=== PATIENT | male | born 1945 | race Caucasian/White ===

== ENCOUNTER 2016-10-23 04:49 | Inpatient (IN) | payer OTHER, MEDICARE ==
[2016-10-23] MEDS ORDERED: NITROGLYCERIN 0.4 MG BTL SL PRN ×3 (04:57→15:49)
[2016-10-23] MEDS ORDERED: NS 1,000 ML IV ONE ×2 (04:57→14:11)
[2016-10-23] MEDS ORDERED: ASPIRIN 81 MG CHEWABLE TAB PO ONE (04:57)
--- NOTE | 2016-10-23 04:59 | CPEKG ---
Heart Rate: 69 RR Interval: 870 P-R Interval: 176 QRSD Interval: 80 QT Interval: 376 QTC Interval: 403 P [place]: 41 QRS [place]: 4 T Wave [place]: 11 EKG Severity - NORMAL ECG - EKG Impression: SINUS RHYTHM Electronically Signed By: Jose Johnson 26-Oct-2016 04:14:35
--- NOTE | 2016-10-23 05:03 | EDPHY ---
H & P HPI/ROS: HPI CHIEF COMPLAINT: Chest pain, left arm Tingling HISTORY OF PRESENT ILLNESS: This patient very pleasant 71-year-old male denies any significant medical history and remote surgical history of his left knee, presents to the emergency room at 5 o'clock in the morning after he woke up at 4 o'clock in the morning or 60 minutes ago with pressure in his chest and then shortly after approximately 10 minutes develop some tingling in his left arm. Patient tells me now that tingling has resolved however he still has some pressure in the middle of his chest. However that has improved. He tells me around 4:00 a.m. he woke up noticed that he had severe pressure in his chest nonradiating he did have some sweaty feet he tells me but no other nausea or vomiting denies arm pain and jaw pain or back pain. Tells me the pain was a pressure sensation in the middle of his chest and then his left arm became tingly. Currently upon arrival to the emergency room he does complain of 3/10 pressure in the center of his chest nonradiating without any tingling numbness or weakness. patient denies ever having a cardiac evaluation denies having a stress test, denies history of stroke or [place] Past Medical History: allergies, hearing impaired, takes a baby aspirin per day Past Surgical History:Left knee surgery Social History: occasional alcohol use, denies daily use of tobacco or drugs, no tobacco history Family History: coronary disease in his mom, bypass surgery, no other known coronary artery disease in family ROS REVIEW OF SYSTEMS: A comprehensive 10 point review of systems is otherwise negative aside from elements mentioned in the history of present illness. Exam Constitutional triage nursing summary reviewed, vital signs reviewed, awake/ alert. Eyes normal conjunctivae and sclera, EOMI, PERRLA. HENT normal inspection, atraumatic, moist mucus membranes, no epistaxis, neck supple/ no meningismus, no raccoon eyes. Respiratory clear to auscultation bilaterally, normal breath sounds, no respiratory distress, no wheezing. Cardiovascular rate normal, regular rhythm, no murmur, no edema, distal pulses normal. Gastrointestinal soft, non-tender, no rebound, no guarding, normal bowel sounds, no distension, no pulsatile mass. Genitourinary no CVA tenderness. Musculoskeletal no midline vertebral tenderness, full range of motion, no calf swelling, no tenderness of extremities, no meningismus, good pulses, neurovascularly intact. Skin pink, warm, & dry, no rash, skin atraumatic. Neurologic awake, alert and oriented x 3, AAOx3, moves all 4 extremities equally, motor intact, sensory intact, CN II-XII intact, normal cerebellar, normal vision, normal speech. Psychiatric normal mood/affect. Heme/Lymph/Immune no lymphadenopathy. Differential diagnosis includes but is not limited to: ACS, atypical chest pain , pneumothorax, pneumonia, pulmonary embolism, aortic dissection, congestive heart failure, tumor, musculoskeletal pain, esophageal pain, GERD, peptic ulcer disease, pancreatitis Medical Decision Making: This patient had an IV established be placed on full front desk monitor, obtain blood work, cardiac marker, EKG, chest x-ray he will be given a dose of nitroglycerin to see if this improves his chest pressure. He will be given a full-dose aspirin. His risk factors for coronary artery disease include his age and family history Re-evaluation: EKG interpretation by me on record in [employer] system. Impression time of EKG 4:57 a.m., this is sinus rhythm rate of 69, there is no acute ischemic changes specifically no ST elevation, ST depression, T-wave abnormality. No prolonged intervals. Unremarkable EKG. No signs of acute ischemia visualized. 0514: This patient was given full-dose aspirin and 1 nitroglycerin tab here in the emergency room this reduced his pain to a 0/10. He is pain-free and his blood pressure improved from the 170 systolic to 140s. This time is resting comfortably no complaints. ED x-ray chest one view: Negative for acute cardiopulmonary disease. Image interpreted by myself. Source: Patient - Medical/Surgical History Hx Asthma: No Hx Chronic Respiratory Disease: No Hx Diabetes: No Hx Cardiac Disease: No Hx Renal Disease: No Hx Cirrhosis: No Hx Alcoholism: No Hx HIV/AIDS: No Hx Splenectomy or Spleen Trauma: No Other PMH: PSH: L knee;. PMH: kidney stones; - Social History Smoking Status: Never smoked Constitutional: Initial Vital Signs Temperature (C) 36.5 C 10/23/16 04:55 Heart Rate 80 10/23/16 04:55 Respiratory Rate 16 10/23/16 04:55 Blood Pressure 171/102 H 10/23/16 04:55 O2 Sat (%) 94 10/23/16 04:55 O2 Delivery Mode Nasal Cannula O2 (L/minute) 1 Allergies/Adverse Reactions: No Known Allergies Allergy (Verified 10/23/16 08:15) Home Medications: Medication Instructions Recorded Sertraline HCl [Zoloft 50mg (*)] 50 mg PO DAILY 01/17/16 Aspirin [Aspirin 81mg (*)] 81 mg PO DAILY 03/24/16 Cetirizine [ZyrTEC 10 mg (*)] 10 mg PO DAILY 10/23/16 Zolpidem Tartrate [Ambien] 10 mg PO HS PRN 10/23/16 Medical Decision Making - Data Points Laboratory Results: Laboratory Results 10/23/16 05:05 10/23/16 05:05 Medications Given: Discontinued Medications Aspirin (Aspirin) 324 mg PO EDNOW ONE Stop: 10/23/16 04:58 Last Admin: 10/23/16 05:07 Dose: 324 mg Aspirin (Aspirin) 81 mg PO DAILY OMAR Stop: 04/21/17 10:29 Last Admin: 10/23/16 11:09 Dose: Not Given Aspirin Buffered (Aspirin Ec) 325 mg PO ONCALL ONE Stop: 10/23/16 14:12 Last Admin: 10/23/16 15:18 Dose: Not Given Diazepam (Valium) 5 mg PO ONCALL ONE Stop: 10/23/16 14:12 Last Admin: 10/23/16 15:19 Dose: Not Given Diphenhydramine HCl (Benadryl) 25 mg PO ONCALL ONE Stop: 10/23/16 14:12 Last Admin: 10/23/16 15:19 Dose: Not Given Famotidine (Pepcid) 20 mg PO ONCALL ONE Stop: 10/23/16 14:12 Last Admin: 10/23/16 15:19 Dose: Not Given Sodium Chloride (Ns) 1,000 mls @ 0 mls/hr IV ONCE ONE PRN Reason: As Directed Stop: 10/23/16 04:58 Last Admin: 10/23/16 05:09 Dose: 1,000 mls Sodium Chloride (Ns) 1,000 mls @ 0 mls/hr IV ONCALL ONE PRN Reason: TKO Stop: 10/23/16 14:12 Last Admin: 10/23/16 15:19 Dose: Not Given Departure - Departure Disposition: [facility] Clinical Impression: Chest pain Qualifiers: Chest pain type: unspecified Qualifier Code: (R07.9) Chest pain, unspecified Hypertension Qualifiers: Hypertension type: essential hypertension Qualifier Code: (I10) Essential ( primary) hypertension Condition: Fair
[2016-10-23 05:11] LABS: % IMMATURE GRANULYOCYTES 0.3 % (0.0-1.1); ABSOLUTE IMMATURE GRANULOCYTES 0.02 10^3/uL (0.00-0.10); ADD DIFF? NO; ADD MORPH? NO; ADD SCAN? NO; ATYPICAL LYMPHOCYTE FLAG 0 (0-99); FRAGMENT RBC FLAG 0 (0-99); HEMATOCRIT 40.4 % (40.0-51.0); HEMOGLOBIN 14.4 g/dL (13.7-17.5); LEFT SHIFT FLG 0 (0-99); LIPEMIA HEMOLYSIS FLAG 90 (0-99); MEAN CELL HEMOGLOBIN 33.8 pg (27.9-34.1); MEAN CELL HEMOGLOBIN CONCENTR. 35.6 g/dL (32.4-36.7); MEAN CELL VOLUME 94.8 fL (81.5-99.8); MEAN PLATELET VOLUME 9.6 fL (8.7-11.7); PLATELET CLUMPS FLAG 0 (0-99); PLATELET COUNT 250 10^3/uL (150-400); RED BLOOD CELL COUNT 4.26 10^6/uL (4.40-6.38); RED CELL DISTRIBUTION WIDTH 11.9 % (11.5-15.2)
[2016-10-23 05:23] LABS: INR 0.97 (0.83-1.16); PROTIME(PATIENT) 12.8 SEC (12.0-15.0)
[2016-10-23 05:24] LABS: APTT 25.1 SEC (23.0-38.0)
[2016-10-23 05:36] LABS: ALANINE AMINOTRANSFERASE 40 IU/L (21-72); ALBUMIN 4.1 g/dL (3.5-5.0); ALKALINE PHOSPHATASE 82 IU/L (38-126); ANION GAP 11 mEq/L (8-16); ASPARTATE AMINOTRANSFERASE 27 IU/L (17-59); BILIRUBIN,TOTAL 0.8 mg/dL (0.1-1.4); BILIRUBIN-CONJUGATED 0.4 mg/dL (0.0-0.5); BILIRUBIN-UNCONJUGATED 0.4 mg/dL (0.0-1.1); CALCIUM 9.2 mg/dL (8.5-10.4); CARBON DIOXIDE 27 mEq/l (22-31); CHLORIDE 103 mEq/L (97-110); CREATININE 1.1 mg/dL (0.7-1.3); GLOMERULAR FILTRATION RATE > 60; GLUCOSE 92 mg/dL (70-100); MAGNESIUM 1.9 mg/dL (1.6-2.3); SODIUM 141 mEq/L (134-144); TOTAL PROTEIN 6.9 g/dL (6.3-8.2)
[2016-10-23] MEDS ORDERED: IOPAMIDOL (ISOVUE 370) 100 ML BTL IV ONE ×2 (05:43→14:43)
[2016-10-23 05:47] LABS: CREATINE KINASE-MB FRACTION 2.24 ng/mL (0-3.19); TROPONIN I 0.013 ng/mL (0-0.034)
[2016-10-23] MEDS ORDERED: ONDANSETRON 4 MG/2 ML VIAL IVP PRN ×2 (06:11→15:49)
--- NOTE | 2016-10-23 07:36 | GHP ---
[f rep st] HISTORY AND PHYSICAL DATE OF ADMISSION: 10/23/2016 CHIEF COMPLAINT: Chest pain. HISTORY OF PRESENT ILLNESS: Patient is a 71-year-old male with past medical history of depression, p resenting with sudden onset of chest tightness this morning. He is unsure if he was awake or if it a woke him but he had substernal chest tightness with associated left arm numbness and tingling. His f ingers felt cold. He denies any associated shortness of breath, nausea or vomiting. His feet felt s weaty. Also complained of mild headache. This tightness lasted approximately an hour and was reliev ed with nitroglycerin in the emergency room. He recently had cold symptoms. He was shoveling a lot of snow today and, per his , he was much more short of breath than normal. He states with activity such as walking he does not normally get chest pain or shortness of breath. REVIEW OF SYSTEMS: I completed a 10-point review of systems, negative except as noted in HPI. PAST MEDICAL HISTORY: Depression. PAST SURGICAL HISTORY: Left knee surgery. SOCIAL HISTORY: Lives in [place] with his . 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 No increased stressors. No tobacco. Drinks a glass of wine with dinner nightly. No illicits. FAMILY HISTORY: Mother with several MIs, pacemaker and 4-vessel CABG. Father passed of prostate can cer. MEDICATIONS: Sertraline, Zyrtec, baby aspirin daily. ALLERGIES: Dust, dogs, pollen. PHYSICAL EXAMINATION: VITAL SIGNS: Temperature is 36.5, blood pressure 171/102, heart rate 80, resp irations 16, 94% on 2 L. Repeat blood pressure 142/83 after nitroglycerin. GENERAL: Patient is wel l appearing, lying in bed, in no acute distress. HEENT: PERRLA, EOMI. Moist mucous membranes. CV: Regular rate and rhythm. No murmurs, gallops, or rubs. No JVD. No lower extremity edema. LUNGS: Clear to auscultation bilaterally. ABDOMEN: Soft, nontender, nondistended. Positive bowel sounds . : No Urr[place]ia, no suprapubic tenderness. MUSCULOSKELETAL: 5/5 upper and lower extremity strength . NEURO: 2 through 12 is intact. No focal deficits. PSYCH: Alert and oriented x3. LABS: WBC 7.6, hemoglobin 14, hematocrit 40, platelets 250. D-dimer 0.73. INR 0.7, PT 12.8. Sodiu m 141, potassium 4, chloride 107, bicarbonate 27, BUN 25, creatinine 1.1 (baseline creatinine), gluco se 127. LFTs within normal. Troponin 0.013. BNP is 53. Chest x-ray, personally reviewed by me: Normal expansion. No evidence of effusion or opacity. EKG: ST flattening in lead III and aVF. No old to compare. CTA of chest is pending. ASSESSMENT AND PLAN: 1. Chest pain: The differential includes acute coronary syndrome versus pulmonary embolism versus i nfection versus musculoskeletal versus gastroesophageal reflux disease. Initial troponin and EKG wer e negative for ischemia. D-dimer was mildly elevated. CTA was ordered in the emergency room which i s pending. Patient does have a personal risk factor of age and concerning symptoms including tightne ss with associated left arm numbness and tingling that was relieved with nitroglycerin. He does have a family history of heart disease. Will monitor in the E[facility] on telemetry. Repeat troponin and EKG. I think it is reasonable to check an exercise treadmill test and patient is agreeable to this plan. Provide p.r.n. nitroglycerin, morphine, and oxygen. 2. Depression: Continue sertraline. 3. Seasonal allergies: Continue Zyrtec. 4. Diet: Regular. 5. DVT prophylaxis, low risk, ambulatory. 6. Disposition: Patient warrants observation admission given acute chest pain concerning for acute coronary syndrome, requiring serial troponins, EKG. /[id number]/MODL
--- NOTE | 2016-10-23 07:54 | CT ---
CT Chest Pulmonary Angiogram With Contrast Enhancement and Multiplanar Reconstructions 0602 hours History: Chest pain, elevated D-dimer. Technique: 1.25 mm axial multidetector helical CT imaging was performed through the chest while 90 mL Isovue-370 were injected intravenously without complication. The images were then transferred to an independent workstation where multiplanar and three-dimensional reconstructions were performed by th e interpreting physician and reviewed at multiple windows. Dose reduction techniques were utilized. CT Pulmonary Angiogram Findings: No CT evidence of definite pulmonary thromboemboli. No aortic aneury sm or dissection. Heart is normal in size. Coronary artery calcifications noted. CT Chest Findings: A few 3 mm calcified granulomata in both lungs without evidence of suspicious pulm onary nodules. No acute pneumonia, pleural effusion, or pneumothorax. No significant mediastinal, hil ar, or axillary adenopathy. Diffuse mild thickening of the esophagus with a small hiatal hernia suspe cted. Impression: 1. No definite pulmonary thromboemboli. 2. No aortic aneurysm or dissection. 3. Coronary artery calcifications. 4. A few calcified granulomata without pneumonia or pleural effusion. 5. Small hiatal hernia and possible esophagitis. Consider upper endoscopy correlation. Findings and recommendations discussed with Dr. Ila Ramirez at 0730 hours.
--- NOTE | 2016-10-23 08:04 | DX ---
Chest, One View Portable 0520 hours History: Chest pain. Comparison: None. Findings: Cardiac silhouette is normal in size. No pneumonia, congestive heart failure, pleural effu enedina, or pneumothorax. Impression: 1. No acute pulmonary disease. 2. Consider chest two views when the patient's medical condition permits.
[2016-10-23] MEDS ORDERED: NON-FORMULARY NEW DRUG (Zolpidem Tartrate [Ambien] 10 MG) PO PRN (10:08)
[2016-10-23] MEDS ORDERED: ZOLPIDEM TARTRATE 5 MG TAB PO PRN (10:11)
[2016-10-23] MEDS ORDERED: ASPIRIN 81 MG CHEWABLE TAB PO SCH (10:30)
[2016-10-23] MEDS: CETIRIZINE 10 MG TAB PO SCH (11:10)
[2016-10-23] MEDS: SERTRALINE HCL 50 MG TAB PO SCH (11:10)
[2016-10-23] MEDS: PANTOPRAZOLE SODIUM 40 MG TAB PO SCH (11:12)
--- NOTE | 2016-10-23 12:32 | PDCARST ---
CAR Stress Test Results Type of Stress Test: Dhruv protocol stress testing Indication: chest discomfort Description of Procedure: Consent obtained. Resting ECG was assessed. Patient without significant murmur on auscultation. Patient able to walk comfortably on treadmill without issues. Blood pressure, heart rate, pulse ox, and telemetry were monitored over course of procedure. Impression: Abnormal ECG pattern was noted at 4 minutes, and continued into recovery at 5 minutes, 20 seconds. No chest pains were noted. DTS was -5. At 2 minutes into recovery, resolution of the ECG changes was being noted. Conclusion: Abnormal ETT with ischaemic changes noted. ECG changes were appreciated without symptoms. Patient needs angiogram
--- NOTE | 2016-10-23 12:42 | PDCARCONS ---
Cardiology Consult Reason for Consult: Chest discomfort Chief Complaint: chest discomfort Requesting Physician: Hospitalists History of Present Illness: Patient is a 71 y/o male with fairly unremarkable past history - no HTN, HLP, CAD, or DM - who presented to [facility] with complaints of chest discomfort. Discomfort awakened the patient from sleep about 4 am this morning. Initially, the patient thought it was '...something I ate...', but symptoms continued to be noted, and there was radiation of discomfort into the left arm. Questionable diaphoresis, but no nausea or emesis, no PND or orthopnea. Given the symptoms noted, he proceeded to the [facility]. Labs without overt abnormalities noted (cardiac biomarkers were normal), and ECG was grossly normal. History Information - Allergies/Home Medication List Allergies/Adverse Reactions: No Known Allergies Allergy (Verified 10/23/16 08:15) Home Medications: Sertraline HCl [Zoloft 50mg (*)] 50 mg PO DAILY 01/17/16 [Last Taken 10/22/16] Aspirin [Aspirin 81mg (*)] 81 mg PO DAILY 03/24/16 [Last Taken 10/23/16 04:00 81MG] Cetirizine [ZyrTEC 10 mg (*)] 10 mg PO DAILY 10/23/16 [Last Taken 10/22/16] Zolpidem Tartrate [Ambien] 10 mg PO HS PRN 10/23/16 [Last Taken Unknown] I have personally reviewed and updated: family history, medical history, social history, surgical history - Past Medical History no pertinent PMH - Surgical History Additional surgical history: knee surgery NOS - Family History Positive for: cancer, CAD - Social History Smoking Status: Never smoked Alcohol Use: Occasionally Drug Use: None Cardiac History - Cardiac History Cardiac Risk Factors: age > 65, male Timing/Duration: Hours Severity: moderate Severity Scale: 7 Location: substernal, central Activities at Onset: sleep Modifying Factors: improves with: breathing Associated Symptoms: chest pain, diaphoresis, other (Left arm discomfort) TANGELA Risk Evaluation age greater or equal to 65: yes greater or equal to 3 CAD risk factors: no known CAD(stenosis greater or eqaul to 50%): no ASA use in past 7 days: yes severe angina(greater or equal to 2 episodes in 24hrs): no EKG ST changes greater or equal to 0.5mm: yes positive cardiac marker: no Total Score: 4 TANGELA Score: 19.9% risk Physical Exam Temp Pulse Resp BP Pulse Ox 36.5 C 60 16 129/83 H 96 10/23/16 04:55 10/23/16 07:22 10/23/16 07:22 10/23/16 07:22 10/23/16 07:22 O2 (L/minute) 1 Constitutional: no apparent distress, appears nourished, not in pain Eyes: PERRL Ears, Nose, Mouth, Throat: moist mucous membranes Cardiovascular: regular rate and rhythym, no murmur, rub, or gallop, No JVD Peripheral Pulses: 2+: dorsalis-pedis (R), dorsalis-pedis (L) Respiratory: no respiratory distress, no rales or rhonchi, clear to auscultation Gastrointestinal: normoactive bowel sounds, soft, non-tender abdomen Skin: warm, normal color Musculoskeletal: full muscle strength, no muscle tenderness, normal joint ROM Neurologic: AAOx3, sensation intact bilaterally, CN II-XII Intact Psychiatric: interacting appropriately, not anxious Lab and Imaging 10/23/16 05:05 10/23/16 05:05 WBC 7.62 10^3/uL (3.80-9.50) 10/23/16 05:05 RBC 4.26 10^6/uL (4.40-6.38) L 10/23/16 05:05 Hgb 14.4 g/dL (13.7-17.5) 10/23/16 05:05 Hct 40.4 % (40.0-51.0) 10/23/16 05:05 MCV 94.8 fL (81.5-99.8) 10/23/16 05:05 MCH 33.8 pg (27.9-34.1) 10/23/16 05:05 MCHC 35.6 g/dL (32.4-36.7) 10/23/16 05:05 RDW 11.9 % (11.5-15.2) 10/23/16 05:05 Plt Count 250 10^3/uL (150-400) 10/23/16 05:05 MPV 9.6 fL (8.7-11.7) 10/23/16 05:05 Neut % (Auto) 47.1 % (39.3-74.2) 10/23/16 05:05 Lymph % (Auto) 36.5 % (15.0-45.0) 10/23/16 05:05 Kay % (Auto) 11.8 % (4.5-13.0) 10/23/16 05:05 Eos % (Auto) 3.5 % (0.6-7.6) 10/23/16 05:05 Baso % (Auto) 0.8 % (0.3-1.7) 10/23/16 05:05 Nucleat RBC Rel Count 0.0 % (0.0-0.2) 10/23/16 05:05 Absolute Neuts (auto) 3.59 10^3/uL (1.70-6.50) 10/23/16 05:05 Absolute Lymphs (auto) 2.78 10^3/uL (1.00-3.00) 10/23/16 05:05 Absolute Monos (auto) 0.90 10^3/uL (0.30-0.80) H 10/23/16 05:05 Absolute Eos (auto) 0.27 10^3/uL (0.03-0.40) 10/23/16 05:05 Absolute Basos (auto) 0.06 10^3/uL (0.02-0.10) 10/23/16 05:05 Absolute Nucleated RBC 0.00 10^3/uL (0-0.01) 10/23/16 05:05 Immature Gran % 0.3 % (0.0-1.1) 10/23/16 05:05 Immature Gran # 0.02 10^3/uL (0.00-0.10) 10/23/16 05:05 PT 12.8 SEC (12.0-15.0) 10/23/16 05:05 INR 0.97 (0.83-1.16) 10/23/16 05:05 APTT 25.1 SEC (23.0-38.0) 10/23/16 05:05 D-Dimer 0.73 ug/mLFEU (0.00-0.50) H 10/23/16 05:05 Sodium 141 mEq/L (134-144) 10/23/16 05:05 Potassium 4.0 mEq/L (3.5-5.2) 10/23/16 05:05 Chloride 103 mEq/L (97-110) 10/23/16 05:05 Carbon Dioxide 27 mEq/l (22-31) 10/23/16 05:05 Anion Gap 11 mEq/L (8-16) 10/23/16 05:05 BUN 25 mg/dL (7-23) H 10/23/16 05:05 Creatinine 1.1 mg/dL (0.7-1.3) 10/23/16 05:05 Estimated GFR > 60 10/23/16 05:05 Glucose 92 mg/dL (70-100) 10/23/16 05:05 Calcium 9.2 mg/dL (8.5-10.4) 10/23/16 05:05 Magnesium 1.9 mg/dL (1.6-2.3) 10/23/16 05:05 Total Bilirubin 0.8 mg/dL (0.1-1.4) 10/23/16 05:05 Conjugated Bilirubin 0.4 mg/dL (0.0-0.5) 10/23/16 05:05 Unconjugated Bilirubin 0.4 mg/dL (0.0-1.1) 10/23/16 05:05 AST 27 IU/L (17-59) 10/23/16 05:05 ALT 40 IU/L (21-72) 10/23/16 05:05 Alkaline Phosphatase 82 IU/L (38-126) 10/23/16 05:05 Creatine Kinase 171 IU/L (0-224) 10/23/16 05:05 CK-MB (CK-2) Fraction 2.24 ng/mL (0-3.19) 10/23/16 05:05 Troponin I < 0.012 ng/mL (0-0.034) 10/23/16 10:40 NT-Pro-B Natriuret Pep 53 pg/mL (0-125) 10/23/16 05:05 Total Protein 6.9 g/dL (6.3-8.2) 10/23/16 05:05 Albumin 4.1 g/dL (3.5-5.0) 10/23/16 05:05 Lipase 139.0 IU/L (23-300) 01/06/17 05:05 Visualized and Interpreted Chest x-ray results: Yes Chest X-ray Interpretation: no infiltrate Visualized and Interpreted EKG results: Yes EKG Interpretation: Positive for: normal sinsus rhythm A/P Assessment: 71 y/o male with unremarkable past cardiovascular history with chest discomfort and radiation into the left arm. No cardiac biomarker elevation noted. Resting , baseline ECG with normal sinus rhythm and no ST/T wave changes noted. ETT was arranged, and at 5 minutes into the study, ST depression of 2 mm and greater was noted - without symptoms (V5/6/7). Plan: Recommendations for patient to have angiogram given the symptoms and ECG changes noted. Further recommendations after invasive testing has been completed. Patient was in agreement with these plans.
[2016-10-23] MEDS ORDERED: FAMOTIDINE 20 MG TAB PO ONE (14:11)
[2016-10-23] MEDS ORDERED: ASPIRIN EC 325 MG TAB PO ONE (14:11)
[2016-10-23] MEDS ORDERED: DIAZEPAM 5 MG TAB PO ONE (14:11)
[2016-10-23] MEDS ORDERED: diphenhydrAMINE 25 MG CAP PO ONE (14:11)
[2016-10-23] MEDS ORDERED: LIDOCAINE 1% 30 ML SDV ONE (14:42)
[2016-10-23] MEDS ORDERED: fentaNYL 100 MCG/2 ML INJ ONE ×2 (14:42→15:21)
[2016-10-23] MEDS ORDERED: MIDAZOLAM 2 MG/2 ML VIAL ONE ×2 (14:42→15:21)
--- NOTE | 2016-10-23 15:47 | HOSPPROG ---
Hospitalist Progress Note Assessment/Plan: 71 yo M with PMH of MDD pw cp # chest pain/ ACS: waking him at night, initial w/u with ecg and CTA reassuring however stress test showing concerning ecg changes with ST depressions. Plan is for cardiac angiography per cardiology. Continue monitoring on tele. # esophagitis/hiatal hernia: noted on CTA and thought to be possibly the etiology for his cp, however given positive stress test this seems less likely. Started on PPI, likely should have f/u with GI to eval further but can be deferred to op setting. # MDD: continue op meds # h/o nephrolithiasis, h/o lumbar degenerative disc disease # dispo: IP status, will need > 48 hours stay for eval/mgmt of above Patient new to my care. Old records reviewed and summarized as above. Reviewed care plan with cardiology. Subjective: no significant overnight events, patient not having any further chest pain Objective: Vital Signs Temp Pulse Resp BP Pulse Ox 36.5 C 60 16 129/83 H 96 10/23/16 04:55 10/23/16 07:22 10/23/16 07:22 10/23/16 07:22 10/23/16 07:22 PT 12.8 SEC (12.0-15.0) 10/23/16 05:05 INR 0.97 (0.83-1.16) 10/23/16 05:05 awake alert nad anicteric op clear rrr no mrg cta b soft nt nd no cce warm dry well perfused oriented appropriate - Time Spent With Patient Time Spent with Patient: greater than 35 minutes Time Spent with Patient: Greater than 35 minutes spent on this patients care, greater than 50% of time spent counseling, educating, and coordinating care regarding the above mentioned plan. ICD10 Worksheet Patient Problems: Problems Problem Status Diagnosed Chest pain Acute Hypertension Acute
[2016-10-23] MEDS ORDERED: OXYCODONE/APAP 5/325 TAB PO PRN (15:49)
[2016-10-23] MEDS ORDERED: ATROPINE SULFATE 1 MG/10 ML SYR IVP PRN (15:49)
[2016-10-23] MEDS: ASPIRIN 81 MG CHEWABLE TAB PO SCH (17:10)
--- NOTE | 2016-10-23 17:18 | CPIP ---
[f rep st] INVASIVE CARDIAC PROCEDURE PROCEDURE: Left heart catheterization, left ventriculogram, right and left coronary arteriogram. INDICATIONS: The patient has had resting angina and had a very positive high risk stress test. It w as a regular stress test. He had deep ST-segment depression with exercise without chest pain. He gave informed consent for coronary angiogram. We went over the options including further noninvas krupa testing. We recommended the angiogram and he proceeded to have this study done. COMPLICATIONS: None. Condition at the end of the study was excellent. FINDINGS: 1. Left main coronary artery is normal. The left anterior descending artery in the mid section has a complex lesion involving the takeoff of large diagonal branch and the diagonal branch, itself, has high-degree stenosis in the mid section. The LAD has 85% stenosis. Further down in the beginning of the distal segment of the LAD is another 85% stenosis. The 2nd septal airport planner is a large vessel with a high degree proximal stenosis in the range of 80%. The circumflex coronary artery has intimal disease and OM1 has a 75-80% stenosis. There is a subtotal circumflex right after the takeoff of th at obtuse marginal branch with a 99% stenosis and collaterals from right to the left. 2. The right coronary artery in the mid section has intimal disease. The PDA has a 75% stenosis and is a large vessel. 3. The right coronary artery is dominant. 4. The right sends collaterals to the circumflex. LEFT VENTRICULOGRAM: 1. Left ventriculogram normal. 2. Left ventricular chamber dimension. 3. Normal left ventricular systolic function. 4. No regional wall motion abnormalities. 5. No significant mitral regurgitation is noted. LEFT HEART CATHETERIZATION: 1. Left ventricular end-diastolic pressure is 13 mmHg. 2. There is no aortic stenosis. RECOMMENDATION: 1. The patient should proceed to coronary bypass grafting. 2. We will start him on medications for an acute coronary syndrome. 3. I am not going to start heparin right at this time, but we can easily start that immediately if h e develops any more symptoms. He will at this time get aspirin, beta norah, statin therapy. All his and his 's questions have been answered. Thank you very much. I have talked to the Cardiovascular Surgery service about him and they will do a consultation. /[id number]/MODL
[2016-10-23] MEDS: BISOPROLOL FUMARATE 5 MG TAB PO SCH (18:42)
[2016-10-23] MEDS: ATORVASTATIN CALCIUM 40 MG TAB PO SCH (20:33)
[2016-10-24 03:34] LABS: % IMMATURE GRANULYOCYTES 0.1 % (0.0-1.1); ABSOLUTE IMMATURE GRANULOCYTES 0.01 10^3/uL (0.00-0.10); ADD DIFF? NO; ADD MORPH? NO; ADD SCAN? NO; ATYPICAL LYMPHOCYTE FLAG 0 (0-99); FRAGMENT RBC FLAG 0 (0-99); HEMOGLOBIN 12.5 g/dL (13.7-17.5); LEFT SHIFT FLG 0 (0-99); LIPEMIA HEMOLYSIS FLAG 90 (0-99); MEAN CELL HEMOGLOBIN 33.8 pg (27.9-34.1); MEAN CELL HEMOGLOBIN CONCENTR. 34.7 g/dL (32.4-36.7); MEAN CELL VOLUME 97.3 fL (81.5-99.8); MEAN PLATELET VOLUME 9.6 fL (8.7-11.7); PLATELET CLUMPS FLAG 0 (0-99); PLATELET COUNT 210 10^3/uL (150-400); RED CELL DISTRIBUTION WIDTH 11.9 % (11.5-15.2)
[2016-10-24 03:50] LABS: ANION GAP 8 mEq/L (8-16); CALCIUM 8.8 mg/dL (8.5-10.4); CARBON DIOXIDE 27 mEq/l (22-31); CHLORIDE 104 mEq/L (97-110); GLOMERULAR FILTRATION RATE > 60; GLUCOSE 92 mg/dL (70-100); POTASSIUM 4.5 mEq/L (3.5-5.2); SODIUM 139 mEq/L (134-144)
--- NOTE | 2016-10-24 08:45 | US ---
Bilateral Duplex/Doppler Carotid Sonography October 24, 2016 Indication: 71-year-old man scheduled for open heart surgery. Preanesthesia evaluation. Technique: The cervical portions of the carotid and vertebral arteries were imaged and interrogated by color and pulsed Duplex/Doppler. Spectral analysis was performed. Findings Right Carotid: Right ICA peak systolic velocity = 67 cm/sec Right CCA peak systolic velocity = 71 cm/sec Right ECA peak systolic velocity = 81 cm/sec Right ICA/CCA systolic velocity ratio = 0.95 Minimal noncalcified plaque along the posterior wall of the origin of the right internal carotid eliezer ry results in less than 10% narrowing. No flow-limiting stenosis or ulcerated plaque. Left Carotid: Left ICA peak systolic velocity = 78 cm/sec Left CCA peak systolic velocity = 80 cm/sec Left ECA peak systolic velocity = 75 cm/sec Left ICA/CCA systolic velocity ratio = 0.98 Widely patent carotid bulb and origin of the internal carotid artery. No flow-limiting stenosis or ul cerated plaque. Vertebral Arteries: Antegrade flow is shown by pulsed Doppler of each vertebral artery. Minimally enlarged lymph nodes are present along the right and left jugulodigastric chain. Representa tive right-sided lymph node measures 0.5 cm in short axis x 1.2 x 1.7 cm. A medic[employer] sales representative node on th e left just superior to the carotid bulb measures 0.9 cm in short axis x 1.1 x 1.9 cm. Impression: 1. Widely patent bilateral carotid and vertebral arteries. No flow-limiting stenosis. 2. Minimal symmetric bilateral lymphadenopathy along the jugulodigastric chains. Recommend clinical f ollow up. Measurement of carotid stenosis is based on velocity parameters that correlate the residual internal carotid diameter with [place] Symptomatic Carotid Endarterectomy Trial (NASCET) based stenosis levels.
[2016-10-24] MEDS: CETIRIZINE 10 MG TAB PO SCH (08:52)
[2016-10-24] MEDS: ASPIRIN 81 MG CHEWABLE TAB PO SCH (08:52)
[2016-10-24] MEDS: BISOPROLOL FUMARATE 5 MG TAB PO SCH (08:53)
[2016-10-24] MEDS: PANTOPRAZOLE SODIUM 40 MG TAB PO SCH (08:54)
[2016-10-24] MEDS: SERTRALINE HCL 50 MG TAB PO SCH (08:54)
--- NOTE | 2016-10-24 11:11 | PDCARPN ---
Cardiology Progress Note Assessment/Plan: 71-year-old male with no prior cardiac history. Presented with new onset chest discomfort. Ruled out for ACS. Had a markedly abnormal exercise treadmill test. Subsequent cardiac catheterization demonstrated normal LV systolic function and multivessel CAD. Now referred for CABG. Dr. Buchanan here to see the patient. Has been started on an appropriate regimen including aspirin, beta norah, and statin therapy. No recurrent symptoms over night. 10/24/16 11:10 Subjective: Denies chest pain and dyspnea. Objective: Vital Signs (8 Hrs) Temp Pulse Resp BP Pulse Ox 10/24/16 07:52 36.3 C 72 13 143/83 H 93 10/24/16 04:00 36.4 C 58 L 14 141/75 H 94 Intake/Output (24 Hrs) 10/23/16 10/24/16 10/25/16 05:59 05:59 05:59 Intake Total 1400 Balance 1400 Intake: Oral (ml) 400 IV Intake (ml) 1000 Other: Weight 77.111 kg Number of Voids Toilet 3 Number of Stools Toilet 0 Result Diagrams: 10/24/16 03:18 10/24/16 03:18 - Physical Exam Constitutional: WDWN, healthy appearing Eyes: anicteric sclera Ears, Nose, Mouth, Throat: moist mucous membranes Cardiovascular: regular rate and rhythm, no murmurs, no gallops Respiratory: clear to auscultate bilat Gastrointestinal: normoactive bowel sounds, no tenderness, no masses Skin: no rashes, no edema Neurologic: AAOx3 Psychiatric: interactive, not anxious ICD10 Worksheet Patient Problems: Problems Problem Status Diagnosed Chest pain Acute Hypertension Acute
[2016-10-24] MEDS: MUPIROCIN 2% 22 GM OINT NS SCH ×2 (12:00→20:26)
--- NOTE | 2016-10-24 13:15 | HOSPPROG ---
Hospitalist Progress Note Assessment/Plan: 71 yo M with PMH of MDD pw cp # chest pain: without prior cardiac history, positive stress test and MV disease on cath as next # cad: severe multivessel disease, plan for cabg on Wednesday, pre cabg w/u underway # esophagitis/hiatal hernia: noted on CTA, will defer to op w/u, started on PPI # MDD: continue op meds # h/o nephrolithiasis, h/o lumbar degenerative disc disease # dispo: IP status, will need > 48 hours stay for eval/mgmt of above Subjective: no signficant overnight events, patient feeling well, he is eager for surgery Objective: Vital Signs Temp Pulse Resp BP Pulse Ox 36.4 C 59 L 16 128/78 H 93 10/24/16 11:59 10/24/16 11:59 10/24/16 11:59 10/24/16 11:59 10/24/16 11:59 Laboratory Results 10/24/16 03:18 10/24/16 03:18 10/23/16 10/24/16 10/25/16 05:59 05:59 05:59 Intake Total 1400 Balance 1400 PT 12.8 SEC (12.0-15.0) 10/23/16 05:05 INR 0.97 (0.83-1.16) 10/23/16 05:05 awake alert nad anicteric op clear rrr no mrg cta b soft nt nd no cce warm dry well perfused oriented appropriate ICD10 Worksheet Patient Problems: Problems Problem Status Diagnosed Chest pain Acute Hypertension Acute
[2016-10-24] MEDS: ATORVASTATIN CALCIUM 40 MG TAB PO SCH (20:27)
[2016-10-25] MEDS: BISOPROLOL FUMARATE 5 MG TAB PO SCH (09:06)
[2016-10-25] MEDS: PANTOPRAZOLE SODIUM 40 MG TAB PO SCH (09:06)
[2016-10-25] MEDS: ASPIRIN 81 MG CHEWABLE TAB PO SCH (09:06)
[2016-10-25] MEDS: SERTRALINE HCL 50 MG TAB PO SCH (09:06)
[2016-10-25] MEDS: MUPIROCIN 2% 22 GM OINT NS SCH ×2 (09:07→21:28)
[2016-10-25] MEDS: CETIRIZINE 10 MG TAB PO SCH (09:12)
--- NOTE | 2016-10-25 10:37 | PDCARPN ---
Cardiology Progress Note Assessment/Plan: 71-year-old male with no prior cardiac history. Presented with new onset chest discomfort. Ruled out for ACS. Had a markedly abnormal exercise treadmill test. Subsequent cardiac catheterization demonstrated normal LV systolic function and multivessel CAD. Has been started on an appropriate regimen including aspirin, beta norah, and statin therapy. No recurrent angina. CABG scheduled for tomorrow. Aggressive secondary prevention. Goal LDL < 70. 10/25/16 10:34 Subjective: Denies chest pain and dyspnea. Objective: Vital Signs (8 Hrs) Temp Pulse Resp BP Pulse Ox 10/25/16 08:05 36.4 C 62 17 124/70 H 94 10/25/16 04:00 36.4 C 53 L 15 117/72 94 Intake/Output (24 Hrs) 10/24/16 10/25/16 10/26/16 05:59 05:59 05:59 Intake Total 1400 2720 Balance 1400 2720 Intake: Oral (ml) 400 2720 IV Intake (ml) 1000 Other: Weight 77.111 kg Number of Voids Toilet 3 2 Number of Stools Toilet 0 1 Result Diagrams: 10/24/16 03:18 10/24/16 03:18 - Physical Exam Constitutional: WDWN, healthy appearing, no apparent distress Eyes: anicteric sclera Ears, Nose, Mouth, Throat: moist mucous membranes Cardiovascular: regular rate and rhythm, no murmurs Respiratory: clear to auscultate bilat Gastrointestinal: normoactive bowel sounds, no tenderness, no masses Skin: no rashes, no edema Neurologic: AAOx3 Psychiatric: interactive, not anxious ICD10 Worksheet Patient Problems: Problems Problem Status Diagnosed Chest pain Acute Hypertension Acute
--- NOTE | 2016-10-25 10:44 | HOSPPROG ---
Hospitalist Progress Note Assessment/Plan: # cad: severe multivessel disease, plan for cabg on Wednesday, pre cabg w/u underway # esophagitis/hiatal hernia: noted on CTA, will defer to op w/u, started on PPI # MDD: continue op meds # h/o nephrolithiasis, h/o lumbar degenerative disc disease # dispo: IP status, will need > 48 hours stay for eval/mgmt of above # will sign off to cardiovascular surgery service after surgery Subjective: no new complaints Objective: Vital Signs Temp Pulse Resp BP Pulse Ox 36.4 C 62 17 124/70 H 94 10/25/16 08:05 10/25/16 08:05 10/25/16 08:05 10/25/16 08:05 10/25/16 08:05 Laboratory Results 10/24/16 03:18 10/24/16 03:18 10/24/16 10/25/16 10/26/16 05:59 05:59 05:59 Intake Total 1400 2720 Balance 1400 2720 PT 12.8 SEC (12.0-15.0) 10/23/16 05:05 INR 0.97 (0.83-1.16) 10/23/16 05:05 - Physical Exam Constitutional: no apparent distress, appears nourished, not in pain Respiratory: no respiratory distress Neurologic: AAOx3 Psychiatric: interacting appropriately, not anxious, not encephalopathic, thought process linear ICD10 Worksheet Patient Problems: Problems Problem Status Diagnosed Chest pain Acute Hypertension Acute
--- NOTE | 2016-10-25 14:47 | GCON ---
[f rep st] CONSULTATION DATE OF CONSULTATION: 10/25/2016 REFERRING PHYSICIAN: Benjamin Gates MD REASON FOR CONSULTATION: Patient seen at the request of Dr. Gates with the patient's permission. IMPRESSION: 1. Unstable angina pectoris with severe 3-vessel disease and normal left ventricular function. 2. Status post left knee surgery. RECOMMENDATIONS: This gentleman should undergo multivessel coronary artery revascularization [facility] nela with arterial conduits. We will take both mammaries and will evaluate his left radial artery for 1-2 conduits as indicated. Risk is 1% for serious morbidity and mortality. Risk of AFib is approxi mately 35-40%. This was explained in detail to the patient. We will also resect his left atrial tanja endage or place an Atra clip at the time surgery. The patient and were appreciative of time spe nt and questions answered to their satisfaction. They have no other concerns and he is scheduled for Wednesday morning at 7:15. CHIEF COMPLAINT: This gentleman was awakened at 4 o'clock in the morning with chest and arm discomfo rt. He presented to the ER. He denied nausea or vomiting. He had a persistent 3/10 pain at the marcus e of presentation to the ER. He has no prior history of cardiac events. He has a history of taking a baby aspirin daily, remote alcohol abuse which is daily only. He has never smoked, and he uses no illicit drugs. He works part-time with police training and travels for surgery. FAMILY HISTORY: Positive for known bypass surgery in his mother, otherwise no significant contributi ng history. REVIEW OF SYSTEMS: All 10 systems were interrogated at the present time, he is entirely asymptomatic , including chief complaint. PHYSICAL EXAMINATION: GENERAL: This is a very fit gentleman, appears younger than stated age. JOSE ELIAS L SIGNS: Blood pressure is 99/60 at the present time, heart rate 78, respirations 14 and unlabored. HEENT: Normocephalic. PERRLA, EOMI. NECK: Without bruit, adenopathy, or thyromegaly. HEART: Ra te is regular without murmur. LUNGS: Clear. ABDOMEN: Soft, nontender. Pedal pulses are 2+. No p eripheral edema. No varicosities. LABS: Hematocrit was 40 on admission. Creatinine 1.0 most recently. Carotid study is completed and shows no significant atherosclerotic disease. /[id number]/MODL
[2016-10-25] MEDS: ATORVASTATIN CALCIUM 40 MG TAB PO SCH (20:06)
[2016-10-25] MEDS ORDERED: CHLORHEXIDINE GLUC HIBICLENS 118 ML BTL TP SCH (21:00)
[2016-10-26] MEDS ORDERED: MANNITOL 25% 12.5 GM/50 ML VIAL IV ONE (06:00)
[2016-10-26] MEDS ORDERED: PHENYLEPHRINE HCL 50 MG in NS 250 ML IV ONE (06:00)
[2016-10-26] MEDS ORDERED: niCARdipine/NACL 200 ML IV SCH (06:00)
[2016-10-26] MEDS ORDERED: INSULIN REGULAR HUMAN 100 UNIT in NS 100 ML IV ONE (06:00)
[2016-10-26] MEDS ORDERED: VERAPAMIL 5 MG, NITROGLYCERIN 2.5 MG, HEPARIN 500 UNIT, SODIUM BICARBONATE 0.2 MEQ in L... MISC ONE (06:00)
[2016-10-26] MEDS ORDERED: ceFAZolin 2 GM/DEXTROSE 100 ML IV ONE (06:00)
[2016-10-26] MEDS ORDERED: AMINOCAPROIC ACID 5 GM/20 ML VIAL IV ONE (06:00)
[2016-10-26] MEDS ORDERED: NOREPINEPHRINE BITARTRATE 16 MG in NS 250 ML IV ONE (06:00)
[2016-10-26] MEDS ORDERED: CITRATE DEXTROSE SOLN 500 ML BAG MISC ONE (06:00)
[2016-10-26] MEDS ORDERED: SODIUM BICARBONATE 20 MEQ, LIDOCAINE 1% 10 ML in NORMOSOL-R 1,000 ML MISC ONE (06:00)
[2016-10-26] MEDS ORDERED: NS 1,000 ML IV ONE (06:00)
[2016-10-26] MEDS ORDERED: CALCIUM CHLORIDE 1 GM/10 ML INJ ONE (06:38)
[2016-10-26] MEDS ORDERED: MILRINONE/DEXTROSE/100 ML BAG IV ONE (06:38)
[2016-10-26] MEDS ORDERED: ALBUMIN 5% 250 ML BOTTLE IV ONE (06:38)
[2016-10-26] MEDS ORDERED: PROTAMINE SULFATE 50 MG/5 ML VIAL IVP ONE (06:38)
[2016-10-26] MEDS ORDERED: MAGNESIUM SULFATE 1 GM/2 ML VIAL ONE (06:39)
[2016-10-26] MEDS ORDERED: niCARdipine/NACL/200 ML BAG IV ONE (06:39)
[2016-10-26] MEDS ORDERED: POTASSIUM Cl (KCl) 20 MEQ/50 ML BAG IV ONE (06:39)
[2016-10-26] MEDS ORDERED: ADENOSINE 6 MG/2 ML VIAL ONE (06:39)
[2016-10-26] MEDS ORDERED: AMINOCAPROIC ACID 5 GM/20 ML VIAL ONE (06:39)
[2016-10-26] MEDS ORDERED: NA BICARBONATE 50 MEQ/50 ML VIAL ONE ×2 (06:39→14:36)
[2016-10-26] MEDS ORDERED: AMIODARONE HCL 150 MG/3 ML VIAL ONE (06:39)
[2016-10-26] MEDS ORDERED: DOPamine/DEXTROSE/250 ML BAG IV ONE (06:39)
[2016-10-26] MEDS ORDERED: LIDOCAINE 2% 100 MG/5 ML SYR IVP ONE (06:39)
[2016-10-26] MEDS ORDERED: HEPARIN 10,000 UNIT/10 ML MDV ONE (06:40)
[2016-10-26] MEDS ORDERED: ceFAZolin 1 GM VIAL ONE (06:40)
[2016-10-26] MEDS ORDERED: methylPREDNISolone SOD SUCC 1 GM/8 ML VIAL ONE (06:40)
[2016-10-26] MEDS ORDERED: VERAPAMIL 5 MG/2 ML VIAL ONE (06:50)
[2016-10-26] MEDS ORDERED: PAPAVERINE HCL 60 MG/2 ML SDV ONE (06:50)
[2016-10-26] MEDS ORDERED: SKIN ADHESIVE (DERMABOND) 1 EACH TP ONE ×2 (06:50→09:00)
[2016-10-26] MEDS ORDERED: MINERAL OIL 10 ML VIAL TP ONE (06:50)
[2016-10-26] MEDS ORDERED: fentaNYL 250 MCG/5 ML INJ ONE ×2 (06:58)
[2016-10-26] MEDS ORDERED: MIDAZOLAM 2 MG/2 ML VIAL ONE (07:01)
[2016-10-26] MEDS ORDERED: PROPOFOL/EMULSION 500 MG/50 ML BOTTLE IV ONE (07:01)
[2016-10-26] MEDS ORDERED: NITROGLYCERIN 50 MG/10 ML SDV IV ONE ×2 (07:03)
[2016-10-26] MEDS ORDERED: VANCOMYCIN HCL/NORMAL SALINE 250 ML IV ONE (08:00)
[2016-10-26] MEDS ORDERED: fentaNYL 50 MCG PATCH TD SCH (09:00)
[2016-10-26] MEDS ORDERED: ALBUMIN 5% 500 ML BOTTLE IV ONE (10:12)
[2016-10-26] MEDS ORDERED: MAGNESIUM SULF 2 GM/WATER 50 ML BAG IV ONE (10:12)
[2016-10-26 10:34] LABS: HEMOGLOBIN A1C 5.6 % (4.0-6.0)
[2016-10-26] MEDS ORDERED: PROPOFOL 200 MG/20 ML VIAL ONE (11:28)
[2016-10-26] MEDS ORDERED: fentaNYL 100 MCG/2 ML INJ ONE ×2 (11:28→12:04)
[2016-10-26] MEDS ORDERED: ACETAMINOPHEN 650 MG SUPP PR PRN (11:53)
[2016-10-26] MEDS ORDERED: BISACODYL 10 MG SUPP PR PRN (11:53)
[2016-10-26] MEDS ORDERED: METOCLOPRAMIDE 10 MG/2 ML VIAL IVP PRN (11:53)
[2016-10-26] MEDS ORDERED: SODIUM CL NASAL 45 ML BTL EACHNARE PRN (11:53)
[2016-10-26] MEDS ORDERED: ONDANSETRON 4 MG/2 ML VIAL IVP PRN (11:53)
[2016-10-26] MEDS ORDERED: ACETAMINOPHEN 325 MG TAB PO PRN (11:53)
[2016-10-26] MEDS ORDERED: fentaNYL 100 MCG/2 ML INJ IVP PRN (11:53)
[2016-10-26] MEDS ORDERED: D50W 25 GM/50 ML SYR IVP PRN (11:53)
[2016-10-26] MEDS ORDERED: MAGNESIUM HYDROXIDE 30 ML UDCUP PO PRN (11:53)
[2016-10-26] MEDS ORDERED: PANTOPRAZOLE SODIUM 40 MG in NS 100 ML IV ONE (11:53)
[2016-10-26] MEDS ORDERED: POLYETHYLENE GLYCOL 3350 17 GM PKT PO PRN (11:53)
[2016-10-26] MEDS ORDERED: MAGNESIUM SULF 2 GM/WATER 50 ML IV ONE (11:53)
[2016-10-26] MEDS ORDERED: ALBUMIN 5% 250 ML IV PRN (11:53)
[2016-10-26] MEDS ORDERED: ONDANSETRON DISINTEGRATING 4 MG TAB PO PRN (11:53)
[2016-10-26] MEDS ORDERED: MEPERIDINE 25 MG/ML SYR IVP PRN (11:53)
[2016-10-26] MEDS ORDERED: LACTULOSE 20 GM/30 ML UDCUP PO PRN (11:53)
[2016-10-26] MEDS ORDERED: CEPACOL LOZENGE PO PRN (11:53)
[2016-10-26] MEDS ORDERED: POTASSIUM Cl (KCl) 50 ML IV PRN (11:53)
--- NOTE | 2016-10-26 11:53 | POSTOPPROG ---
Post Op Note Date of Operation: 10/26/16 Surgeon: Johann Buchanan Unmanned Equipment Operator: Kalie Anesthesiologist: Silva Anesthesia: GET(General Endotracheal) Pre-op Diagnosis: unstable angina Procedure: CAB 5 Howell-LAD, Mary-Dg via TS, SVG-Pda, OM1 seq OM2, Atriclip Inf/Abcess present in the surg proc area at time of surgery?: No EBL: 50-100 Drains: Other (3 blakes)
[2016-10-26] MEDS ORDERED: INSULIN REGULAR HUMAN 100 UNIT in NS 100 ML IV SCH (12:00)
[2016-10-26] MEDS ORDERED: NS 1,000 ML IV SCH (12:00)
--- NOTE | 2016-10-26 12:34 | GOP ---
[f rep st] OPERATIVE REPORT DATE OF OPERATION: 10/26/2016 SURGEON: Johann Buchanan DO OVERNIGHT ASSOCIATE: Vega Jade ANESTHESIOLOGIST: Dani Gill PREOPERATIVE DIAGNOSIS: Unstable angina pectoris with severe 3-vessel disease. POSTOPERATIVE DIAGNOSIS: Unstable angina pectoris with severe 3-vessel disease. PROCEDURE PERFORMED: 1. Coronary artery bypass grafting x5 with left internal mammary artery to the distal left anterior descending, right internal mammary artery via the transverse sinus to the first diagonal, saphenous v ein graft to the first obtuse marginal and sequential second obtuse marginal, and saphenous vein rehan t to the mid posterior descending artery. 2. Atra clip to the left atrial appendage. FINDINGS: Patient presented with unstable angina pectoris. He was noted to have severe 3-vessel dis ease with normal LV function preoperatively. He was consented for surgery. DESCRIPTION OF PROCEDURE: He was brought to the operating room, intubated, monitoring lines. He was prepped and draped in sterile classical manner. Sternotomy was performed. However, initially we evaluated him for radial artery harvesting however, he had inadequate collateral flow to his hand and for that reason, that was not harvested. We then performed a sternotomy and harvesting both mammaries, which were 2.5 mm excellent quality ves sels. Vein was harvested endoscopically from the left leg by JOSÉ LUIS Leigh who first assisted thro ughout the procedure. He was then heparinized, cannulated in the standard fashion. Cardiopulmonary bypass was begun. A ca rdioplegic arrest was obtained with antegrade cardioplegia, topical hypothermia, and systemic cooling . Transesophageal echo had been performed by Anesthesia; please see separate findings. No significan t valvular dysfunction with good LV function was noted pre and post pump. I initially grafted the posterolateral circumflex, which was a 1.9 to 2 mm vessel with moderately dif fuse disease sequentially to the first OM graft, which was quite thin-walled and initially it was tho ught to be a vein however, it was just a small, thin-walled vessel. It had excellent antegrade flow and was therefore grafted in a sequential manner, then brought off the ascending aorta with a 5-0 Pro nathaniel. We then performed a vein graft in the mid PDA where it measured 1.6 mm. It was brought off the ascen ding aorta and had excellent antegrade flow. I then placed a 35 mm Atra clip across the base of the left atrial appendage without difficulty. We then proceeded with bringing the right internal mammary artery to a lateral pericardial incision b eneath the aorta in a transverse sinus and grafting it to the proximal diagonal branch, which was a 2 mm, good quality vessel. It was tacked to the epicardium while rewarming was begun. We then grafte d the mammary to the distal LAD without complication. It was tacked to the epicardium. The crossclamp was removed with suction on the ascending aortic vent. Spontaneous cardiac activity w as noted to resume. Patient was rewarmed and weaned from bypass without difficulty. EKG looked stab le with sinus bradycardia, as did the transesophageal echo with no segmental abnormalities noted. The heparin was reversed with protamine. The cannula was removed and oversewn. Two ventricular paci ng wires were placed. Thymic fat and pericardium were closed. The chest was closed in standard fash ion, and the patient was returned to ICU in stable condition. /[id number]/MODL
--- NOTE | 2016-10-26 12:54 | CPEKG ---
Heart Rate: 76 RR Interval: 789 P-R Interval: 192 QRSD Interval: 78 QT Interval: 412 QTC Interval: 464 P [place]: 71 QRS [place]: 7 T Wave [place]: 33 EKG Severity - NORMAL ECG - EKG Impression: SINUS RHYTHM Electronically Signed By: Abel Shook 26-Oct-2016 15:47:48
[2016-10-26] MEDS: MUPIROCIN 2% 22 GM OINT NS SCH ×2 (13:03→21:31)
[2016-10-26] MEDS: BISOPROLOL FUMARATE 5 MG TAB PO SCH (13:46)
[2016-10-26] MEDS: CETIRIZINE 10 MG TAB PO SCH (13:46)
[2016-10-26] MEDS: PANTOPRAZOLE SODIUM 40 MG TAB PO SCH (13:46)
[2016-10-26] MEDS: ASPIRIN 81 MG CHEWABLE TAB PO SCH (13:46)
[2016-10-26] MEDS: SERTRALINE HCL 50 MG TAB PO SCH (13:47)
[2016-10-26 14:08] LABS: BICARBONATE 19 mEq/L (22-26); MEASURED OXYGEN SATURATION 92 % (92-95); PCO2 43 mmHg (34-38); PO2 79 mmHg (65-75); TCO2 21 mEq/L (23-27)
[2016-10-26 14:09] LABS: O2 CONCENTRATIION 40 % (0-100); P/F RATIO 198 RATIO; PRESSURE SUPPORT 7; SIMV YES
--- NOTE | 2016-10-26 14:48 | DX ---
Portable AP Semiupright Chest - October 26, 2016, at 12:49 p.m. Clinical History: 71-year-old male postoperative open heart surgery, currently in the ICU. Comparison Study: Chest, dated October 23, 2016. Findings: The patient has undergone open heart surgery with median sternotomy wires, mediastinal my gical clips (consistent with CABG), and a left atrial appendage ligature. Telemetry monitoring lead l loren are present. There are epicardial pacing wires. There is an endotracheal tube, which terminates 5.4 cm above the reva. There is a right IJ central venous catheter terminating in the distal SVC. T here is a left-sided chest tube. There are mild hypoventilatory features. The cardiac silhouette latoya ins mildly enlarged, and the pulmonary vasculature is redistributed. There is some bibasilar subsegme ntal atelectasis. There is no pneumothorax. Impression: Postoperative changes with interventional device positioning, as-detailed.
[2016-10-26] MEDS ORDERED: NA BICARBONATE 50 MEQ/50 ML VIAL IV ONE ×2 (15:00→16:30)
[2016-10-26 15:57] LABS: BASE EXCESS -5.2 mEq/L (-2.5-2.5); BICARBONATE 20 mEq/L (22-26); MEASURED OXYGEN SATURATION 95 % (92-95); PCO2 41 mmHg (34-38); PO2 90 mmHg (65-75); TCO2 22 mEq/L (23-27)
[2016-10-26 15:58] LABS: CPAP YES; O2 CONCENTRATIION 40 % (0-100); P/F RATIO 225 RATIO; PATIENT RATE 20; PRESSURE SUPPORT 7
[2016-10-26] MEDS: ceFAZolin 2 GM/DEXTROSE 100 ML IV SCH ×2 (16:19→21:28)
[2016-10-26] MEDS: HYDROCODONE/APAP 5/325 TAB PO PRN (19:26)
[2016-10-26] MEDS ORDERED: CHLORHEXIDINE GLUCONATE 15 ML UDL PO SCH (21:00)
[2016-10-26] MEDS ORDERED: FAMOTIDINE 20 MG/NACL 50 ML IV SCH (21:00)
[2016-10-26] MEDS: SENNOSIDES/DOCUSATE SODIUM TAB PO SCH (21:15)
[2016-10-26 22:37] LABS: HEMOGLOBIN 11.3 g/dL (13.7-17.5); MEAN CELL HEMOGLOBIN 34.7 pg (27.9-34.1); MEAN CELL HEMOGLOBIN CONCENTR. 35.3 g/dL (32.4-36.7); MEAN CELL VOLUME 98.2 fL (81.5-99.8); RED BLOOD CELL COUNT 3.26 10^6/uL (4.40-6.38); RED CELL DISTRIBUTION WIDTH 12.1 % (11.5-15.2)
[2016-10-27] MEDS: HYDROCODONE/APAP 5/325 TAB PO PRN ×3 (00:09→20:01)
[2016-10-27 04:17] LABS: % IMMATURE GRANULYOCYTES 0.3 % (0.0-1.1); ABSOLUTE IMMATURE GRANULOCYTES 0.05 10^3/uL (0.00-0.10); ADD DIFF? NO; ADD MORPH? NO; ADD SCAN? NO; ATYPICAL LYMPHOCYTE FLAG 0 (0-99); FRAGMENT RBC FLAG 0 (0-99); HEMATOCRIT 31.2 % (40.0-51.0); HEMOGLOBIN 10.6 g/dL (13.7-17.5); LEFT SHIFT FLG 60 (0-99); LIPEMIA HEMOLYSIS FLAG 90 (0-99); MEAN PLATELET VOLUME 10.3 fL (8.7-11.7); PLATELET CLUMPS FLAG 0 (0-99); PLATELET COUNT 178 10^3/uL (150-400); RED BLOOD CELL COUNT 3.12 10^6/uL (4.40-6.38); RED CELL DISTRIBUTION WIDTH 12.3 % (11.5-15.2)
[2016-10-27 04:26] LABS: ANION GAP 8 mEq/L (8-16); CALCIUM 7.7 mg/dL (8.5-10.4); CARBON DIOXIDE 25 mEq/l (22-31); CHLORIDE 111 mEq/L (97-110); CREATININE 0.9 mg/dL (0.7-1.3); GLOMERULAR FILTRATION RATE > 60; GLUCOSE 107 mg/dL (70-100); POTASSIUM 4.7 mEq/L (3.5-5.2); SODIUM 144 mEq/L (134-144)
[2016-10-27] MEDS: HEPARIN 5,000 UNIT/0.5 ML SYR SC SCH ×3 (05:10→22:33)
[2016-10-27] MEDS: ceFAZolin 2 GM/DEXTROSE 100 ML IV SCH ×3 (05:14→22:30)
[2016-10-27] MEDS ORDERED: HEPARIN 5,000 UNIT/0.5 ML SYR SC SCH (06:00)
--- NOTE | 2016-10-27 07:28 | SOAPPROG ---
[id number] AtriClip ligation left atrial appendage Sx CAD w preserved LV systolic fx - s/p CABG w bilateral mammaries. Stable early postop course. No vasoactive support. No tachycardia or backup pacing. Modest volume overload. Satisfactory analgesia. Acute expected blood loss anemia - Stable. No transfusions required. Plan: Routine POD#1 orders re lines, drains, orals and mobility. Ok for tx to PCU. 10/27/16 07:23 Subjective: Feels fine. OOB with relative ease. Very comfortable at rest, only hurting during IS. Tolerating clears. Objective: Vital Signs Temp Pulse Resp BP Pulse Ox 37.4 C 96 22 H 104/64 93 10/27/16 04:00 10/27/16 06:00 10/27/16 06:00 10/27/16 06:00 10/27/16 06:00 Laboratory Results 10/27/16 03:55 10/27/16 03:55 10/26/16 10/27/16 10/28/16 05:59 05:59 05:59 Intake Total 1600 1369.5 Output Total 2180 Balance 1600 -810.5 PT 12.8 SEC (12.0-15.0) 10/23/16 05:05 INR 0.97 (0.83-1.16) 10/23/16 05:05 Extubated yest afternoon without incident. Modest suppl O2 req. Urrutia out. No insulin. HR, rhythm and BP stable. CXR -> hypoventilation, tubes in good position, small rt pl effusion vs atelectasis. No sig CTOP. No air leak. Adequate autodiuresis. Labs ok. Physical Exam - Physical Exam General Appearance: alert, no apparent distress Respiratory: lungs clear (upper anterior), other (diminished insp effort. Blakes x 3 y-d to pleurovac, thin serosang drainage, +tidal, no air leak. Rt pl tube stripped of formed clot and fibrinous stranding.) Cardiac/Chest: regular rate, rhythm, tachycardia, other (Sternum grossly stable. Sternotomy and LLE venotomy CDI) Abdomen: normal bowel sounds, non-tender, soft Skin: warm/dry Extremities: swelling (trace) ICD10 Worksheet Patient Problems: Problems Problem Status Diagnosed Chest pain Acute Hypertension Acute
[2016-10-27] MEDS: ASPIRIN 81 MG CHEWABLE TAB PO SCH (08:45)
[2016-10-27] MEDS: SENNOSIDES/DOCUSATE SODIUM TAB PO SCH ×2 (08:45→22:33)
[2016-10-27] MEDS: PANTOPRAZOLE SODIUM 40 MG TAB PO SCH (08:45)
[2016-10-27] MEDS: traMADol 50 MG TAB PO PRN ×2 (08:45→13:17)
[2016-10-27] MEDS: SERTRALINE HCL 50 MG TAB PO SCH (08:46)
[2016-10-27] MEDS: MUPIROCIN 2% 22 GM OINT NS SCH (08:47)
--- NOTE | 2016-10-27 09:52 | DX ---
Portable AP Upright Chest October 27, 2016 6:13 a.m. Clinical History: 71-year-old male in the ICU for follow up after an open heart surgery. Comparison Study: Chest, dated October 26, 2016, at 12:49 p.m. Findings: In the interim, the endotracheal tube has been removed. The numerous interventional and mon itoring devices are stable in this patient who has undergone a CABG and a left atrial appendage ligat ure. There are hypoventilatory features with bibasilar areas of subsegmental atelectasis versus minim al infiltrates. There is some peribronchial thickening. The cardiac silhouette size is stable. There is no pneumothorax appreciated. Impression: Postoperative changes with interval extubation since October 26, 2016 and hypoventilatory features.
[2016-10-27] MEDS: METOPROLOL TARTRATE 25 MG TAB PO SCH (22:31)
[2016-10-28] MEDS: MUPIROCIN 2% 22 GM OINT NS SCH ×2 (01:28→08:34)
[2016-10-28] MEDS: traMADol 50 MG TAB PO PRN ×3 (04:51→16:41)
[2016-10-28] MEDS: HEPARIN 5,000 UNIT/0.5 ML SYR SC SCH ×3 (04:52→21:26)
[2016-10-28 05:22] LABS: % IMMATURE GRANULYOCYTES 0.6 % (0.0-1.1); ABSOLUTE IMMATURE GRANULOCYTES 0.11 10^3/uL (0.00-0.10); ADD DIFF? NO; ADD MORPH? NO; ADD SCAN? NO; ATYPICAL LYMPHOCYTE FLAG 0 (0-99); FRAGMENT RBC FLAG 0 (0-99); HEMATOCRIT 30.4 % (40.0-51.0); HEMOGLOBIN 10.2 g/dL (13.7-17.5); LEFT SHIFT FLG 60 (0-99); LIPEMIA HEMOLYSIS FLAG 80 (0-99); MEAN CELL HEMOGLOBIN 33.9 pg (27.9-34.1); MEAN CELL HEMOGLOBIN CONCENTR. 33.6 g/dL (32.4-36.7); PLATELET CLUMPS FLAG 0 (0-99); PLATELET COUNT 178 10^3/uL (150-400); RED BLOOD CELL COUNT 3.01 10^6/uL (4.40-6.38); RED CELL DISTRIBUTION WIDTH 12.6 % (11.5-15.2)
[2016-10-28 05:36] LABS: ANION GAP 10 mEq/L (8-16); CALCIUM 8.3 mg/dL (8.5-10.4); CARBON DIOXIDE 26 mEq/l (22-31); CHLORIDE 103 mEq/L (97-110); CREATININE 1.5 mg/dL (0.7-1.3); GLOMERULAR FILTRATION RATE 46; GLUCOSE 181 mg/dL (70-100); POTASSIUM 4.7 mEq/L (3.5-5.2); SODIUM 139 mEq/L (134-144)
[2016-10-28] MEDS: SENNOSIDES/DOCUSATE SODIUM TAB PO SCH (08:26)
[2016-10-28] MEDS: PANTOPRAZOLE SODIUM 40 MG TAB PO SCH (08:27)
[2016-10-28] MEDS: SERTRALINE HCL 50 MG TAB PO SCH (08:27)
[2016-10-28] MEDS: ASPIRIN 81 MG CHEWABLE TAB PO SCH (08:27)
[2016-10-28] MEDS: METOPROLOL TARTRATE 25 MG TAB PO SCH ×2 (08:27→21:54)
[2016-10-28] MEDS: CETIRIZINE 10 MG TAB PO SCH (08:28)
[2016-10-28] MEDS ORDERED: SERTRALINE HCL 50 MG TAB PO SCH (09:00)
--- NOTE | 2016-10-28 09:23 | SOAPPROG ---
SOAP Progress Note Assessment/Plan: Assessment: POD#2 CABG x 5 (RYAN-LAD, SHEN-Dx, SV-PDA, SV sequentially OM1-OM2) , prophylactic AtriClip ligation of left atrial appendage Sx CAD w preserved LV systolic fx - s/p CABG w bilateral mammaries. Stable early postop course. No vasoactive support. No tachycardia or backup pacing. Autodiuresing modest volume overload w slight bump in renal fx. Acute expected blood loss anemia - Stable. No transfusions required. Abdominal distention - Threatening ileus. Trial conservative counteractive measures. NGT if progresses. Plan: Remove TCPW and CTs. D/C duragesic patch. Relax fluid restriction to 2L. Switch to CL diet x 24hrs. NS IV @ 100 ml/h x 1L. Scheduled reglan and miralax x 24 hrs. Inc activity and pulm toilet as tolerated. Cont metoprolol 12.5 mg BID w conservative hold parameters. 10/28/16 07:57 Subjective: Doing ok. Feels bloated but is belching, passing gas, and mobilizing a little easier. No nausea. Thirsty. Objective: Vital Signs Temp Pulse Resp BP Pulse Ox 36.7 C 91 18 109/75 91 L 10/28/16 07:40 10/28/16 07:40 10/28/16 07:40 10/28/16 07:40 10/28/16 07:40 Laboratory Results 10/28/16 05:00 10/28/16 05:00 10/27/16 10/28/16 10/29/16 05:59 05:59 05:59 Intake Total 1369.5 1575 480 Output Total 2180 800 Balance -810.5 775 480 PT 12.8 SEC (12.0-15.0) 10/23/16 05:05 INR 0.97 (0.83-1.16) 10/23/16 05:05 Stable rhythm and BP. Sl bump in BUN/Cr, likely delayed response as MAPs > 70 and 2L UOP last 24 hrs. CXR-> Hypoventilation, but improved aeration rt base. Min pl eff. Abundant intestinal gas. CTOP at removal criteria. Physical Exam - Physical Exam General Appearance: alert, no apparent distress Respiratory: decreased breath sounds (bases), other (Blakes x 3 to bulb suction , thin serosang drainage.) Cardiac/Chest: regular rate, rhythm, tachycardia, other (Sternum grossly stable. Sternotomy and LLE venotomy CDI) Abdomen: non-tender, distended, other (hypoactive BS) Skin: warm/dry Extremities: other (trace-1+ dep edema) ICD10 Worksheet Patient Problems: Problems Problem Status Diagnosed Chest pain Acute Hypertension Acute
[2016-10-28] MEDS ORDERED: NS 1,000 ML IV SCH (10:15)
--- NOTE | 2016-10-28 10:49 | DX ---
Portable AP Upright Chest October 28, 2016 6:15 a.m. Clinical History: 71-year-old male presenting for follow up of an effusion and atelectasis. Comparison Study: Chest, dated October 27, 2016, at 6:13 a.m. Findings: The patient has undergone median sternotomy, CABG, and ligature of the left atrial appendag e. There is stable positioning of a left-sided chest tube, and of a right IJ central venous catheter. There are mild hypoventilatory features. The cardiac and mediastinal silhouette remains stable in si ze, and there is peribronchial thickening. There are areas of bibasilar atelectasis and/or mild infil trates. Air-filled loops of stomach and colon are noted with mild elevation of the left hemidiaphragm . There is no evidence of a pneumothorax. Impression: Radiographically similar to October 27, 2016.
[2016-10-28] MEDS: METOCLOPRAMIDE 10 MG/2 ML VIAL IVP SCH ×2 (11:27→18:32)
[2016-10-28] MEDS ORDERED: ACETAMINOPHEN 325 MG TAB PO PRN (18:00)
[2016-10-28] MEDS ORDERED: traMADol 50 MG TAB PO PRN (18:00)
[2016-10-28] MEDS ORDERED: HYDROCODONE/APAP 5/325 TAB PO PRN (18:00)
[2016-10-28] MEDS ORDERED: ATORVASTATIN CALCIUM 40 MG TAB PO SCH (20:00)
[2016-10-29] MEDS: MUPIROCIN 2% 22 GM OINT NS SCH (01:03)
[2016-10-29] MEDS: SENNOSIDES/DOCUSATE SODIUM TAB PO SCH ×3 (01:12→22:04)
[2016-10-29] MEDS: HEPARIN 5,000 UNIT/0.5 ML SYR SC SCH ×3 (04:27→22:04)
[2016-10-29 05:29] LABS: ANION GAP 8 mEq/L (8-16); CALCIUM 8.1 mg/dL (8.5-10.4); CARBON DIOXIDE 27 mEq/l (22-31); CHLORIDE 101 mEq/L (97-110); CREATININE 1.1 mg/dL (0.7-1.3); GLOMERULAR FILTRATION RATE > 60; GLUCOSE 139 mg/dL (70-100); POTASSIUM 4.1 mEq/L (3.5-5.2); SODIUM 136 mEq/L (134-144)
--- NOTE | 2016-10-29 08:53 | SOAPPROG ---
SOAP Progress Note Assessment/Plan: POD#3 CABG x 5 (RYAN-LAD, SHEN-Dx, SV-PDA, SV sequentially OM1-OM2), prophylactic AtriClip ligation of left atrial appendage Unstable angina, severe three-vessel CAD with normal LV function s/p CABG x5. Stable early postop course with preserved normal LV function. Continue ASA/BB/ Statin. Acute expected blood loss anemia - Stable. No transfusions required. ROBIN, likely pre-renal - Cr 1.1 from 1.5 s/p 1 liter NS. Monitor. Post-op ileus, resolving - +flatus with small BMs overnight - will introduce solid foods this AM and monitor. Avoid narcotics. Ambulation. Disposition - plan for home tomorrow Subjective: Denies N/V, abdominal pain. + flatus/small BMs. Objective: Vital Signs Temp Pulse Resp BP Pulse Ox 36.8 C 87 22 H 121/80 H 95 10/29/16 07:39 10/29/16 07:39 10/29/16 07:39 10/29/16 07:39 10/29/16 07:39 Laboratory Results 10/28/16 05:00 10/29/16 04:40 10/28/16 10/29/16 10/30/16 05:59 05:59 05:59 Intake Total 1575 2560 240 Output Total 800 Balance 775 2560 240 PT 12.8 SEC (12.0-15.0) 10/23/16 05:05 INR 0.97 (0.83-1.16) 10/23/16 05:05 - Pending Discharge Pending Discharge Within 24 Hours: Yes Pending Discharge Date: 10/30/16 Pending Discharge Time: 11:00 Physical Exam - Physical Exam General Appearance: WD/WN, alert, no apparent distress EENT: No scleral icterus (R), No scleral icterus (L) Neck: normal inspection Respiratory: chest non-tender, lungs clear, normal breath sounds, No accessory muscle use Cardiac/Chest: regular rate, rhythm, No systolic murmur Abdomen: non-tender, soft, distended, No guarding, No rigid Skin: normal color, warm/dry Extremities: pedal edema (+1 edema B/L) Neuro/Psych: no motor/sensory deficits, alert, normal mood/affect, oriented x 3 , No motor weakness, No sensory deficit ICD10 Worksheet Patient Problems: Problems Problem Status Diagnosed Abnormal stress electrocardiogram test using treadmill Acute 10/23/16 Acute blood loss anemia Acute CAD, multiple vessel Acute Chest pain Acute Hypertension Acute S/P CABG x 5 Acute 10/26/16
[2016-10-29] MEDS: CETIRIZINE 10 MG TAB PO SCH (09:14)
[2016-10-29] MEDS: PANTOPRAZOLE SODIUM 40 MG TAB PO SCH (09:14)
[2016-10-29] MEDS: ASPIRIN 81 MG CHEWABLE TAB PO SCH (09:14)
[2016-10-29] MEDS: METOPROLOL TARTRATE 25 MG TAB PO SCH ×2 (09:15→21:25)
[2016-10-29] MEDS: SERTRALINE HCL 50 MG TAB PO SCH (09:15)
[2016-10-29] MEDS ORDERED: FUROSEMIDE 40 MG/4 ML VIAL IVP ONE (10:21)
[2016-10-29] MEDS ORDERED: POTASSIUM CL 20 MEQ TAB PO ONE (10:21)
--- NOTE | 2016-10-30 07:02 | SOAPPROG ---
SOAP Progress Note Assessment/Plan: POD#4 CABG x 5 (RYAN-LAD, SHEN-Dx, SV-PDA, SV sequentially OM1-OM2), prophylactic AtriClip ligation of left atrial appendage Unstable angina, severe three-vessel CAD with normal LV function s/p CABG x5. Stable early postop course with preserved normal LV function. Continue ASA/BB/ Statin. Acute expected blood loss anemia - Stable. No transfusions required. ROBIN, likely pre-renal - Cr 1.1 from 1.5 s/p 1 liter NS. Monitor. Post-op ileus, resolving - +flatus. Tolerating PO. Avoid narcotics. Ambulation. Magnesium Citrate this AM. Disposition - plan for home later today if +BM Subjective: c/o abdominal distension with discomfort. Denies N/V. + flatus Objective: Vital Signs Temp Pulse Resp BP Pulse Ox 36.6 C 88 18 126/73 H 93 10/30/16 04:00 10/30/16 04:00 10/30/16 04:00 10/30/16 04:00 10/30/16 04:00 Laboratory Results 10/28/16 05:00 10/29/16 04:40 10/29/16 10/30/16 10/31/16 05:59 05:59 05:59 Intake Total 2560 1140 Output Total 1750 Balance 2560 -610 PT 12.8 SEC (12.0-15.0) 10/23/16 05:05 INR 0.97 (0.83-1.16) 10/23/16 05:05 - Pending Discharge Pending Discharge Within 24 Hours: Yes Pending Discharge Date: 10/31/16 Pending Discharge Time: 11:00 Physical Exam - Physical Exam General Appearance: WD/WN, alert, no apparent distress EENT: No scleral icterus (R), No scleral icterus (L) Neck: normal inspection Respiratory: chest non-tender, lungs clear, normal breath sounds, rales, No crackles, No rhonchi, No wheezing Cardiac/Chest: regular rate, rhythm, No systolic murmur Abdomen: normal bowel sounds, non-tender, soft, distended Skin: normal color, warm/dry Extremities: pedal edema (trace b/l) Neuro/Psych: no motor/sensory deficits, alert, normal mood/affect, oriented x 3 ICD10 Worksheet Patient Problems: Problems Problem Status Diagnosed Abnormal stress electrocardiogram test using treadmill Acute 10/23/16 Acute blood loss anemia Acute CAD, multiple vessel Acute Chest pain Acute Hypertension Acute S/P CABG x 5 Acute 10/26/16
[2016-10-30] MEDS ORDERED: MAGNESIUM CITRATE 300 ML BOTTLE PO ONE (07:25)
[2016-10-30] MEDS: HEPARIN 5,000 UNIT/0.5 ML SYR SC SCH ×2 (08:07→14:51)
[2016-10-30] MEDS: ASPIRIN 81 MG CHEWABLE TAB PO SCH (09:10)
[2016-10-30] MEDS: SENNOSIDES/DOCUSATE SODIUM TAB PO SCH (09:10)
[2016-10-30] MEDS: CETIRIZINE 10 MG TAB PO SCH (09:11)
[2016-10-30] MEDS: METOPROLOL TARTRATE 25 MG TAB PO SCH (09:11)
[2016-10-30] MEDS: SERTRALINE HCL 50 MG TAB PO SCH (09:11)
[2016-10-30] MEDS: PANTOPRAZOLE SODIUM 40 MG TAB PO SCH (09:14)
[2016-10-30] MEDS: POLYETHYLENE GLYCOL 3350 17 GM PKT PO SCH (09:14)
[2016-10-30 12:02] VITALS: BP 101/71; PULSE 74; RESP 16; TEMP 97.9; O2SAT 96
--- NOTE | 2016-10-30 12:40 | PDDCSUM ---
Discharge Summary Discharge Summary: ADMISSION DATE: 10/23/16 DISCHARGE DATE: 10/30/16 ADMISSION DX: 1. Unstable angina 2. Severe three vessel disease DISCHARGE DX: 1. Unstable angina 2. Severe three vessel disease 3. Post operative ileus, resolved 4. Acute kidney injury, resolved SECONDARY DX: 1. Hyperlipidemia 2. Depression CONSULTS: 1. Pulmonology : Kevin Smalls PROCEDURES: 10/26/16, Johann Buchanan: 1. CABGx5 (MILLER-LAD, LIZZY-D1, SVG-OM1-OM2 (sequential), SVG-PDA) 2. AtraClip left atrial appendage HPI: Pt was admitted with unstable angina and diagnosed with severe three vessel disease after left heart catheterization. HOSPITAL COURSE: Patient was transferred from the OR to the ICU in stable condition. The patient had post-operative kidney injury where the Cr bumped to 1.5 and normalized after hydration. The patient had abdominal distension likely due to a post- operative ileus which resolved. CONDITION: - Good DISPOSITION: - Home, self-care ACTIVITY: Pt was instructed on sternal precautions, activity limitations, and which problems to call [facility] with. Please see Discharge Plan in chart for specifics. D/C MEDICATIONS: 1. Sertraline HCl [Zoloft 50mg (*)] 50 mg PO DAILY 2. Aspirin [Aspirin 81mg (*)] 81 mg PO DAILY 3. Cetirizine [ZyrTEC 10 mg (*)] 10 mg PO DAILY 4. Zolpidem Tartrate [Ambien] 10 mg PO HS PRN 5. Acetaminophen [Tylenol 325mg (*)] 325 - 650 mg PO Q4HRS PRN 6. Atorvastatin Calcium [Lipitor 40 mg (*)] 40 mg PO HS #30 tab 7. Metoprolol Tartrate [Lopressor 25 mg (*)] 12.5 mg PO BID #60 tab 8. traMADol [Ultram 50 mg (*)] 50 - 100 mg PO Q4HRS PRN #30 tab PENDING STUDIES/LABS: 1. 11/10/15: CXR F/U APPOINTMENTS: - Dr. Johann Buchanan - 11/10/15, 9:30 AM - Dr. Benjamin Gates - To be arranged at surgical follow-up
== END 2016-10-30 15:34 | disposition home or self-care (01) | DRG 234 ==
LOC: F1N 06:40 → F2W 14:56 → OBSVTOIN 15:49 → F2N 10-26 07:00 → F2W 10-27 10:27
PROVIDERS: ADMIT Internal Medicine; ATTEND Internal Medicine
PROC: B2151ZZ Fluoroscopy of Left Heart using Low Osmolar Contrast (ICD-10-PCS; 2016-10-23)
PROC: 4A023N7 Measurement of Cardiac Sampling and Pressure, Left Heart, Percutaneous Approach (ICD-10-PCS; 2016-10-23)
PROC: B2111ZZ Fluoroscopy of Multiple Coronary Arteries using Low Osmolar Contrast (ICD-10-PCS; 2016-10-23)
PROC: 5A1221Z Performance of Cardiac Output, Continuous (ICD-10-PCS; principal; 2016-10-26 07:15)
PROC: 021309W Bypass Coronary Artery, Four or More Arteries from Aorta with Autologous Venous Tissue, Open Approach (ICD-10-PCS; principal; 2016-10-26 07:15)
PROC: 06BQ4ZZ Excision of Left Saphenous Vein, Percutaneous Endoscopic Approach (ICD-10-PCS; principal; 2016-10-26 07:15)
PROC: 02100Z9 Bypass Coronary Artery, One Artery from Left Internal Mammary, Open Approach (ICD-10-PCS; principal; 2016-10-26 07:15)
PROC: 02L70CK Occlusion of Left Atrial Appendage with Extraluminal Device, Open Approach (ICD-10-PCS; principal; 2016-10-26 07:15)
DX: I25.110 Atherosclerotic heart disease of native coronary artery with unstable angina pectoris (principal); K91.89 Other postprocedural complications and disorders of digestive system; N17.9 Acute kidney failure, unspecified; I10 Essential (primary) hypertension; F32.9 Major depressive disorder, single episode, unspecified; E78.5 Hyperlipidemia, unspecified; E11.9 Type 2 diabetes mellitus without complications; Z82.49 Family history of ischemic heart disease and other diseases of the circulatory system
CPT/HCPCS: 82947-QW; 97116-GP; 97162-GP; 97165-GO; 97530-GO; 97535-GO; G8978-GP-CK; G8979-GP-CJ; G8987-GO-CK; G8988-GO-CI; G8989-GO-CI; J0153; J0282; J0690; J1265; J1644; J1815; J2001; J2150; J2250; J2260; J2370; J2405; J2440; J2704; J2720; J2765; J2930; J3010; J3370; J7060; P9041; Q9967

== ENCOUNTER → 2016-11-09 | Outpatient (CLI) | payer OTHER, MEDICARE ==
--- NOTE | 2016-11-09 16:03 | DX ---
Chest, PA and Lateral History: Follow-up pleural effusion and atelectasis, post CABG surgery with clip ligation of the left atrial appendage Comparison: October 28, 2016 Findings: Inspiratory phase is dramatically improved. There is improvement in bibasilar atelectasis, with only a small amount remaining. Small densities in each lower lung remain and possibly represent previously present pleural plaques. Small bilateral pleural effusions remain, also improved. Heart si ze remains at the upper limits of normal. The pulmonary vascularity demonstrates improved plethora, b ut remains equalized, consistent with mild pulmonary venous hypertension. A median sternotomy wire, C ABG clips and atrial appendage clip remain in place. A mediastinal drain and a right external jugular venous catheter have been removed. There is no pneumothorax. Impression: Marked improvement.
== END ==
LOC: FIMAGING 14:47
PROVIDERS: ATTEND Internal Medicine
DX: J90 Pleural effusion, not elsewhere classified (principal); J98.11 Atelectasis